=== PATIENT | female | born 1945 | race Caucasian/White ===

== ENCOUNTER 2022-11-12 16:43 | Inpatient (IN) | payer BC, MEDICARE ==
[~2022-11-12] VITALS: Ht 152.4 cm; Wt 77.6 kg
[~2022-11-12 16:43] MED LIST: ADVIL200 MG PO; AMLODIPINE BESY10 MG PO; ASPIRIN81 MG PO; CEFDINIR300 MG PO; DONEPEZIL HCL10 MG PO; METOPROLOL TART50 MG PO; NIFEDIPINE ER30 M1 PO; ROPINIROLE HC0.25 MG PO; SENNA LAX8.6 MG PO; SERTRALINE HCL50 MG PO
[2022-11-12] MEDS ORDERED: SODIUM CHLORIDE 0.9% 1000ML 1,000 ML IV STA (16:47)
[2022-11-12 17:31] LABS: BASOPHILS % 0.2 % (0.0-1.0); EOSINOPHILS % 0.1 % (0.0-6.0); HEMOGLOBIN 13.3 g/dL (12.0-16.0); LYMPHOCYTES # (AUTO) 1.2 (1.0-3.2); LYMPHOCYTES % 6.3 % (18.0-39.1); MEAN CORPUSCULAR HEMOGLOBIN 30.1 pg (28-32); MEAN CORPUSCULAR HGB CONC 29.6 g/dL (31-35); MEAN CORPUSCULAR VOLUME 101.8 fL (81-99); MONOCYTES # (AUTO) 1.8 (0.2-0.8); MONOCYTES % 9.5 % (4.4-11.3); NEUTROPHILS # (AUTO) 15.9 (2.1-6.9); NEUTROPHILS % 82.3 % (38.7-80.0); PLATELET COUNT 196 x10e3/uL (140-360); RED BLOOD COUNT 4.42 x10e6/uL (3.6-5.1); RED CELL DISTRIBUTION WIDTH 15.2 % (11.7-14.4)
[2022-11-12 17:37] LABS: AMPHETAMINES SCREEN,URINE NEGATIVE (NEGATIVE); BENZODIAZEPINES SCREEN,URINE NEGATIVE (NEGATIVE); PHENCYCLIDINE SCREEN,URINE NEGATIVE (NEGATIVE)
[2022-11-12 17:39] LABS: CLARITY,URINE SL CLOUDY (CLEAR); COLOR,URINE AMBER (YELLOW); KETONES,URINE NEGATIVE (NEGATIVE); LEUKOCYTE ESTERASE ,URINE NEGATIVE (NEGATIVE); NITRITE,URINE NEGATIVE (NEGATIVE); PROTEIN,URINE DIPSTICK 2+ (NEGATIVE); URINE UROBILINOGEN >=8 mg/dL (0.2 - 1)
[2022-11-12] MEDS: SODIUM CHLORIDE 0.9% 1000ML 1,000 ML IV SCH ×2 (17:39→18:11)
[2022-11-12] MEDS ORDERED: Vancomycin IV 1 GM in SODIUM CHLORIDE 0.9% 250ML 250 ML IV ONE ×2 (17:45→22:00)
[2022-11-12 17:46] LABS: AMORPHOUS SEDIMENT,URINE FEW (FEW); BACTERIA,URINE MODERATE /HPF
[2022-11-12] MEDS ORDERED: ONDANSETRON HCL INJ 2MG/ML 2ML 2 MG/ML VIAL ONE (18:09)
[2022-11-12] MEDS ORDERED: CEFTRIAXONE 1 GM VIAL ONE (18:10)
[2022-11-12] MEDS ORDERED: SODIUM CHLORIDE 0.9% 1000ML 1,000 ML ONE (18:10)
[2022-11-12] MEDS ORDERED: SODIUM CHLORIDE 0.9% 1000ML 1,000 ML IV SCH (18:30)
[2022-11-12 18:31] LABS: INR 1.27; PROTHROMBIN TIME 16.1 seconds (11.9-14.5)
[2022-11-12 18:32] LABS: PARTIAL THROMBOPLASTIN TIME 34.1 seconds (23.8-35.5)
[2022-11-12 18:39] LABS: ALBUMIN 2.5 g/dL (3.5-5.0); ALBUMIN/GLOBULIN RATIO 0.5 (0.8-2.0); ANION GAP 17.6 mmol/L (8-16); CALCIUM 9.4 mg/dL (8.4-10.2); CREATININE, SERUM 0.75 mg/dL (0.57-1.11); MAGNESIUM 2.1 MG/DL (1.3-2.1)
[2022-11-12 18:48] LABS: POTASSIUM 2.6 mmol/L (3.5-5.1)
[2022-11-12] MEDS ORDERED: POTASSIUM CHLORIDE 20 MEQ TAB CR PO STA (18:48)
[2022-11-12 18:55] LABS: CREATINE KINASE MB 3.6 ng/mL (0-5.0)
[2022-11-12] MEDS: POTASSIUM CHLORIDE 20MEQ/100ML 100 ML IV SCH ×2 (19:00→20:48)
[2022-11-12] MEDS: ALBUTEROL SULF 0.083% NEB SOLN 3 ML NEB NEB SCH (19:15)
[2022-11-12 20:00] VITALS: BP 137/46
[2022-11-12] MEDS ORDERED: ONDANSETRON HCL INJ 2MG/ML 2ML 2 MG/ML VIAL IV PRN (21:30)
[2022-11-12] MEDS ORDERED: POLYETHYLENE GLYCOL 3350 17 GM PACK PO PRN (21:30)
[2022-11-12] MEDS ORDERED: ACETAMINOPHEN 325 MG TAB PO PRN (21:30)
[2022-11-13] VITALS (9 sets, daily range): BP systolic 139–179; BP diastolic 59–75
[2022-11-13] MEDS: ALBUTEROL SULF 0.083% NEB SOLN 3 ML NEB NEB SCH ×7 (00:15→23:00)
[2022-11-13 01:33] LABS: CREATINE KINASE MB 3.6 ng/mL (0-5.0)
[2022-11-13 06:32] LABS: CREATINE KINASE MB 2.8 ng/mL (0-5.0)
[2022-11-13 06:39] LABS: CHOL/HDL RATIO 7.3 (3.0-3.6); PHOSPHORUS 2.5 MG/DL (2.3-4.7)
[2022-11-13 06:41] LABS: ALBUMIN 2.1 g/dL (3.5-5.0); ALBUMIN/GLOBULIN RATIO 0.5 (0.8-2.0); ANION GAP 14.9 mmol/L (8-16); CALCIUM 8.4 mg/dL (8.4-10.2); CREATININE, SERUM 0.72 mg/dL (0.57-1.11)
[2022-11-13 06:45] LABS: THYROID STIMULATING HORMONE 0.343 uIU/mL (0.350-4.940)
[2022-11-13 07:17] LABS: POTASSIUM 2.9 mmol/L (3.5-5.1)
[2022-11-13 08:33] LABS: BASOPHILS # (AUTO) 0.1 (0.0-0.1); BASOPHILS % 0.3 % (0.0-1.0); EOSINOPHILS % 0.1 % (0.0-6.0); HEMATOCRIT 34.8 % (34.2-44.1); HEMOGLOBIN 11.3 g/dL (12.0-16.0); LYMPHOCYTES # (AUTO) 1.9 (1.0-3.2); LYMPHOCYTES % 11.4 % (18.0-39.1); MEAN CORPUSCULAR HEMOGLOBIN 30.6 pg (28-32); MEAN CORPUSCULAR HGB CONC 32.5 g/dL (31-35); MEAN CORPUSCULAR VOLUME 94.3 fL (81-99); MONOCYTES # (AUTO) 1.7 (0.2-0.8); MONOCYTES % 10.1 % (4.4-11.3); NEUTROPHILS # (AUTO) 12.9 (2.1-6.9); NEUTROPHILS % 76.2 % (38.7-80.0); PLATELET COUNT 263 x10e3/uL (140-360); RED BLOOD COUNT 3.69 x10e6/uL (3.6-5.1); RED CELL DISTRIBUTION WIDTH 14.8 % (11.7-14.4)
[2022-11-13] MEDS: FAMOTIDINE 20 MG TAB PO SCH ×2 (09:20→16:26)
[2022-11-13] MEDS: DOCUSATE SODIUM 100 MG CAP PO SCH ×2 (09:20→16:26)
[2022-11-13] MEDS ORDERED: POTASSIUM CHLORIDE 10MEQ EA PO ONE (09:30)
[2022-11-13] MEDS ORDERED: POTASSIUM CHLORIDE 20 MEQ in DEXTROSE 5% 1,000 ML IV SCH (10:30)
[2022-11-14] VITALS (9 sets, daily range): BP systolic 126–187; BP diastolic 57–74
[2022-11-14] MEDS: ALBUTEROL SULF 0.083% NEB SOLN 3 ML NEB NEB SCH ×6 (03:00→23:10)
[2022-11-14] MEDS: DOCUSATE SODIUM 100 MG CAP PO SCH ×2 (07:54→16:27)
[2022-11-14] MEDS: FAMOTIDINE 20 MG TAB PO SCH ×2 (08:43→16:28)
[2022-11-14 11:55] LABS: ALBUMIN/GLOBULIN RATIO 0.5 (0.8-2.0); ANION GAP 15.1 mmol/L (8-16); CALCIUM 8.5 mg/dL (8.4-10.2); CREATININE, SERUM 0.66 mg/dL (0.57-1.11); POTASSIUM 3.1 mmol/L (3.5-5.1)
[2022-11-14] MEDS ORDERED: DEXTROSE 5% 1,000 ML IV SCH (16:00)
[2022-11-14] MEDS: POTASSIUM CHLORIDE 20MEQ/100ML 100 ML IV SCH ×2 (16:27→22:01)
[2022-11-14] MEDS ORDERED: POTASSIUM CHLORIDE 20 MEQ in DEXTROSE 5% 1,000 ML IV SCH (17:45)
[2022-11-14] MEDS: DEXTROSE 5% 1,000 ML IV SCH (18:30)
[2022-11-15] VITALS (7 sets, daily range): BP systolic 149–179; BP diastolic 66–98
[2022-11-15] MEDS: ALBUTEROL SULF 0.083% NEB SOLN 3 ML NEB NEB SCH ×6 (03:42→23:10)
[2022-11-15 06:22] LABS: ALBUMIN 1.9 g/dL (3.5-5.0); ALBUMIN/GLOBULIN RATIO 0.4 (0.8-2.0); ANION GAP 14.3 mmol/L (8-16); CALCIUM 8.5 mg/dL (8.4-10.2); CREATININE, SERUM 0.66 mg/dL (0.57-1.11); POTASSIUM 3.3 mmol/L (3.5-5.1)
[2022-11-15] MEDS: DOCUSATE SODIUM 100 MG CAP PO SCH ×2 (09:51→17:05)
[2022-11-15] MEDS: FAMOTIDINE 20 MG TAB PO SCH (09:51)
[2022-11-15] MEDS: DEXTROSE 5% 1,000 ML IV SCH (12:19)
[2022-11-15] MEDS ORDERED: ONDANSETRON HCL 4 MG ORAL DISINTEGRATING TAB PO PRN (14:15)
[2022-11-16 01:49] VITALS: BP 147/86
[2022-11-16] MEDS: ALBUTEROL SULF 0.083% NEB SOLN 3 ML NEB NEB SCH ×6 (03:15→23:20)
[2022-11-16 05:02] VITALS: BP 171/63
[2022-11-16 06:03] LABS: BASOPHILS # (AUTO) 0.1 (0.0-0.1); BASOPHILS % 0.5 % (0.0-1.0); EOSINOPHILS # (AUTO) 0.4 (0.0-0.4); EOSINOPHILS % 2.8 % (0.0-6.0); HEMATOCRIT 34.6 % (34.2-44.1); HEMOGLOBIN 11.1 g/dL (12.0-16.0); LYMPHOCYTES # (AUTO) 1.4 (1.0-3.2); LYMPHOCYTES % 9.8 % (18.0-39.1); MEAN CORPUSCULAR HGB CONC 32.1 g/dL (31-35); MEAN CORPUSCULAR VOLUME 93.5 fL (81-99); MONOCYTES # (AUTO) 1.3 (0.2-0.8); MONOCYTES % 8.9 % (4.4-11.3); NEUTROPHILS # (AUTO) 10.5 (2.1-6.9); PLATELET COUNT 162 x10e3/uL (140-360); RED CELL DISTRIBUTION WIDTH 15.3 % (11.7-14.4)
[2022-11-16 06:29] LABS: ANION GAP 17.4 mmol/L (8-16); CALCIUM 8.3 mg/dL (8.4-10.2); CREATININE, SERUM 0.66 mg/dL (0.57-1.11); POTASSIUM 3.4 mmol/L (3.5-5.1)
[2022-11-16] MEDS: PANTOPRAZOLE SOD 40 MG TABEC PO SCH (09:37)
[2022-11-16] MEDS: DOCUSATE SODIUM 100 MG CAP PO SCH ×2 (09:37→16:30)
[2022-11-16] MEDS: DEXTROSE 5% 1,000 ML IV SCH (09:39)
[2022-11-16 10:10] VITALS: BP 149/72
[2022-11-16 12:35] VITALS: BP 157/66
[2022-11-16 16:00] VITALS: BP 142/73
[2022-11-16 20:00] VITALS: BP 169/72
[2022-11-17] VITALS (7 sets, daily range): BP systolic 143–173; BP diastolic 55–85
[2022-11-17] MEDS: ALBUTEROL SULF 0.083% NEB SOLN 3 ML NEB NEB SCH ×6 (03:15→23:50)
[2022-11-17] MEDS: DEXTROSE 5% 1,000 ML IV SCH (06:30)
[2022-11-17 08:58] LABS: BASOPHILS # (AUTO) 0.1 (0.0-0.1); BASOPHILS % 0.7 % (0.0-1.0); EOSINOPHILS # (AUTO) 0.4 (0.0-0.4); EOSINOPHILS % 3.2 % (0.0-6.0); HEMATOCRIT 37.6 % (34.2-44.1); HEMOGLOBIN 11.7 g/dL (12.0-16.0); LYMPHOCYTES # (AUTO) 1.3 (1.0-3.2); LYMPHOCYTES % 10.9 % (18.0-39.1); MEAN CORPUSCULAR HEMOGLOBIN 30.6 pg (28-32); MEAN CORPUSCULAR HGB CONC 31.1 g/dL (31-35); MEAN CORPUSCULAR VOLUME 98.4 fL (81-99); MONOCYTES % 8.7 % (4.4-11.3); NEUTROPHILS # (AUTO) 8.3 (2.1-6.9); NEUTROPHILS % 71.4 % (38.7-80.0); PLATELET COUNT 268 x10e3/uL (140-360); RED BLOOD COUNT 3.82 x10e6/uL (3.6-5.1); RED CELL DISTRIBUTION WIDTH 15.4 % (11.7-14.4)
[2022-11-17 09:16] LABS: ANION GAP 16.3 mmol/L (8-16); CALCIUM 8.4 mg/dL (8.4-10.2); CREATININE, SERUM 0.65 mg/dL (0.57-1.11); POTASSIUM 3.3 mmol/L (3.5-5.1)
[2022-11-17] MEDS: PANTOPRAZOLE SOD 40 MG TABEC PO SCH (09:34)
[2022-11-17] MEDS: DOCUSATE SODIUM 100 MG CAP PO SCH ×2 (09:34→16:37)
[2022-11-17 10:07] LABS: EOSINOPHILS % (MANUAL) 4 % (0-7); LYMPHOCYTES % (MANUAL) 4 % (19-48); METAMYELOCYTES % (MANUAL) 1 % (0-0); MONOCYTES % (MANUAL) 3 % (3.4-9.0); MYELOCYTES % (MANUAL) 1 % (0-0); NEUTROPHILS % (MANUAL) 87 % (40-74)
[2022-11-17 10:08] LABS: PLATELET ESTIMATE ADEQUATE; PLATELET MORPHOLOGY COMMENT NORMAL; RBC MORPHOLOGY COMMENT NORMAL
[2022-11-17] MEDS ORDERED: POTASSIUM CHLORIDE 20 MEQ TAB CR PO ONE (12:00)
[2022-11-18] VITALS (8 sets, daily range): BP systolic 108–192; BP diastolic 59–90
[2022-11-18] MEDS ORDERED: DAPTOMYCIN 500mg 10ML 400 MG in SODIUM CHLORIDE 0.9% 100 ML IV SCH (03:00)
[2022-11-18] MEDS: ALBUTEROL SULF 0.083% NEB SOLN 3 ML NEB NEB SCH ×6 (03:50→23:35)
[2022-11-18 06:45] LABS: BASOPHILS % 0.3 % (0.0-1.0); EOSINOPHILS # (AUTO) 0.3 (0.0-0.4); EOSINOPHILS % 3.3 % (0.0-6.0); HEMATOCRIT 34.1 % (34.2-44.1); LYMPHOCYTES # (AUTO) 1.3 (1.0-3.2); LYMPHOCYTES % 12.9 % (18.0-39.1); MEAN CORPUSCULAR HEMOGLOBIN 30.6 pg (28-32); MEAN CORPUSCULAR HGB CONC 32.3 g/dL (31-35); MEAN CORPUSCULAR VOLUME 94.7 fL (81-99); MONOCYTES # (AUTO) 0.9 (0.2-0.8); NEUTROPHILS # (AUTO) 7.2 (2.1-6.9); PLATELET COUNT 284 x10e3/uL (140-360); RED CELL DISTRIBUTION WIDTH 15.1 % (11.7-14.4)
[2022-11-18 07:13] LABS: ANION GAP 14.3 mmol/L (8-16); CALCIUM 8.2 mg/dL (8.4-10.2); CREATININE, SERUM 0.71 mg/dL (0.57-1.11); POTASSIUM 3.3 mmol/L (3.5-5.1)
[2022-11-18] MEDS: HYDRALAZINE HCL 20 MG/ML VIAL IV PRN (07:57)
[2022-11-18] MEDS ORDERED: POTASSIUM CHLORIDE 20 MEQ TAB CR PO ONE (08:30)
[2022-11-18] MEDS: PANTOPRAZOLE SOD 40 MG TABEC PO SCH (09:49)
[2022-11-18] MEDS: DOCUSATE SODIUM 100 MG CAP PO SCH ×2 (09:49→16:18)
[2022-11-18] MEDS ORDERED: DAPTOMYCIN 500mg 10ML 400 MG in SODIUM CHLORIDE 0.9% 100 ML IV ONE (11:30)
[2022-11-18] MEDS ORDERED: LORAZEPAM2 MG/1 M1 IVP (19:36)
[2022-11-19] VITALS (7 sets, daily range): BP systolic 105–152; BP diastolic 53–94
[2022-11-19] MEDS: ALBUTEROL SULF 0.083% NEB SOLN 3 ML NEB NEB SCH ×6 (00:25→19:30)
[2022-11-19 06:22] LABS: BASOPHILS % 0.4 % (0.0-1.0); EOSINOPHILS # (AUTO) 0.3 (0.0-0.4); EOSINOPHILS % 2.7 % (0.0-6.0); HEMATOCRIT 35.9 % (34.2-44.1); HEMOGLOBIN 11.5 g/dL (12.0-16.0); LYMPHOCYTES # (AUTO) 1.6 (1.0-3.2); LYMPHOCYTES % 14.9 % (18.0-39.1); MEAN CORPUSCULAR HEMOGLOBIN 30.3 pg (28-32); MEAN CORPUSCULAR VOLUME 94.7 fL (81-99); MONOCYTES # (AUTO) 0.9 (0.2-0.8); MONOCYTES % 8.8 % (4.4-11.3); NEUTROPHILS # (AUTO) 7.4 (2.1-6.9); NEUTROPHILS % 70.7 % (38.7-80.0); PLATELET COUNT 242 x10e3/uL (140-360); RED BLOOD COUNT 3.79 x10e6/uL (3.6-5.1); RED CELL DISTRIBUTION WIDTH 15.4 % (11.7-14.4)
[2022-11-19 06:53] LABS: ANION GAP 14.9 mmol/L (8-16); CALCIUM 8.4 mg/dL (8.4-10.2); CREATININE, SERUM 0.68 mg/dL (0.57-1.11); POTASSIUM 3.9 mmol/L (3.5-5.1)
[2022-11-19] MEDS: PANTOPRAZOLE SOD 40 MG TABEC PO SCH (07:30)
[2022-11-19] MEDS: DOCUSATE SODIUM 100 MG CAP PO SCH ×2 (09:00→17:04)
[2022-11-19] MEDS ORDERED: DAPTOMYCIN 500mg 10ML 400 MG in SODIUM CHLORIDE 0.9% 100 ML IV SCH (11:00)
[2022-11-19] MEDS: DAPTOMYCIN 500mg 10ML 400 MG in SODIUM CHLORIDE 0.9% 100 ML IV SCH (21:00)
[2022-11-20] VITALS (7 sets, daily range): BP systolic 141–162; BP diastolic 55–71
[2022-11-20] MEDS: ALBUTEROL SULF 0.083% NEB SOLN 3 ML NEB NEB SCH ×6 (04:05→23:15)
[2022-11-20] MEDS: PANTOPRAZOLE SOD 40 MG TABEC PO SCH (08:51)
[2022-11-20] MEDS: DOCUSATE SODIUM 100 MG CAP PO SCH ×2 (08:51→15:56)
[2022-11-20] MEDS: DAPTOMYCIN 500mg 10ML 400 MG in SODIUM CHLORIDE 0.9% 100 ML IV SCH (21:14)
[2022-11-21] VITALS (7 sets, daily range): BP systolic 111–164; BP diastolic 57–83
[2022-11-21] MEDS: ALBUTEROL SULF 0.083% NEB SOLN 3 ML NEB NEB SCH ×3 (03:05→12:45)
[2022-11-21 06:37] LABS: BASOPHILS % 0.4 % (0.0-1.0); EOSINOPHILS # (AUTO) 0.3 (0.0-0.4); EOSINOPHILS % 2.8 % (0.0-6.0); HEMATOCRIT 38.3 % (34.2-44.1); LYMPHOCYTES # (AUTO) 1.4 (1.0-3.2); LYMPHOCYTES % 14.9 % (18.0-39.1); MEAN CORPUSCULAR HEMOGLOBIN 30.1 pg (28-32); MEAN CORPUSCULAR HGB CONC 31.3 g/dL (31-35); MONOCYTES # (AUTO) 0.9 (0.2-0.8); MONOCYTES % 9.9 % (4.4-11.3); NEUTROPHILS # (AUTO) 6.6 (2.1-6.9); NEUTROPHILS % 70.5 % (38.7-80.0); PLATELET COUNT 331 x10e3/uL (140-360); RED BLOOD COUNT 3.99 x10e6/uL (3.6-5.1); RED CELL DISTRIBUTION WIDTH 15.1 % (11.7-14.4)
[2022-11-21 07:08] LABS: ALBUMIN 2.2 g/dL (3.5-5.0); ALBUMIN/GLOBULIN RATIO 0.5 (0.8-2.0); CALCIUM 8.5 mg/dL (8.4-10.2); CREATININE, SERUM 0.72 mg/dL (0.57-1.11)
[2022-11-21] MEDS: PANTOPRAZOLE SOD 40 MG TABEC PO SCH (09:11)
[2022-11-21] MEDS: DOCUSATE SODIUM 100 MG CAP PO SCH ×2 (09:11→16:59)
[2022-11-21] MEDS ORDERED: ALBUTEROL SULF 0.083% NEB SOLN 3 ML NEB NEB PRN (15:15)
[2022-11-21] MEDS: DAPTOMYCIN 500mg 10ML 400 MG in SODIUM CHLORIDE 0.9% 100 ML IV SCH (20:28)
[2022-11-22] VITALS (8 sets, daily range): BP systolic 130–199; BP diastolic 56–92
[2022-11-22] MEDS: PANTOPRAZOLE SOD 40 MG TABEC PO SCH (08:59)
[2022-11-22] MEDS: DOCUSATE SODIUM 100 MG CAP PO SCH ×2 (08:59→16:19)
[2022-11-22] MEDS: HYDRALAZINE HCL 20 MG/ML VIAL IV PRN (09:00)
[2022-11-22] MEDS ORDERED: Vancomycin IV 1 GM in SODIUM CHLORIDE 0.9% 250ML 250 ML IV ONE (15:00)
[2022-11-23] VITALS (7 sets, daily range): BP systolic 128–166; BP diastolic 55–81
[2022-11-23 06:07] LABS: BASOPHILS # (AUTO) 0.1 (0.0-0.1); BASOPHILS % 0.5 % (0.0-1.0); EOSINOPHILS # (AUTO) 0.2 (0.0-0.4); HEMATOCRIT 42.3 % (34.2-44.1); HEMOGLOBIN 13.5 g/dL (12.0-16.0); LYMPHOCYTES # (AUTO) 1.2 (1.0-3.2); LYMPHOCYTES % 11.1 % (18.0-39.1); MEAN CORPUSCULAR HEMOGLOBIN 30.4 pg (28-32); MEAN CORPUSCULAR HGB CONC 31.9 g/dL (31-35); MEAN CORPUSCULAR VOLUME 95.3 fL (81-99); MONOCYTES # (AUTO) 0.8 (0.2-0.8); MONOCYTES % 7.6 % (4.4-11.3); NEUTROPHILS # (AUTO) 8.6 (2.1-6.9); NEUTROPHILS % 78.1 % (38.7-80.0); PLATELET COUNT 312 x10e3/uL (140-360); RED BLOOD COUNT 4.44 x10e6/uL (3.6-5.1); RED CELL DISTRIBUTION WIDTH 15.2 % (11.7-14.4)
[2022-11-23 06:36] LABS: ANION GAP 15.7 mmol/L (8-16); CREATININE, SERUM 0.76 mg/dL (0.57-1.11); POTASSIUM 3.7 mmol/L (3.5-5.1)
[2022-11-23] MEDS: PANTOPRAZOLE SOD 40 MG TABEC PO SCH (08:02)
[2022-11-23] MEDS: DOCUSATE SODIUM 100 MG CAP PO SCH ×2 (08:02→15:42)
[2022-11-23] MEDS: Vancomycin IV 500 MG in SODIUM CHLORIDE 0.9% 100 ML IV SCH ×2 (08:02→22:26)
[2022-11-23] MEDS: HYDRALAZINE HCL 20 MG/ML VIAL IV PRN (08:35)
[2022-11-24] VITALS (9 sets, daily range): BP systolic 123–156; BP diastolic 65–75
[2022-11-24] MEDS: PANTOPRAZOLE SOD 40 MG TABEC PO SCH (09:27)
[2022-11-24] MEDS: DOCUSATE SODIUM 100 MG CAP PO SCH ×2 (09:27→17:22)
[2022-11-24] MEDS: Vancomycin IV 500 MG in SODIUM CHLORIDE 0.9% 100 ML IV SCH (09:28)
[2022-11-24] MEDS ORDERED: IBUPROFEN 200 MG TAB PO PRN (10:00)
[2022-11-24] MEDS ORDERED: SENNOSIDES 8.6 MG TAB PO PRN (10:00)
[2022-11-24] MEDS ORDERED: METOPROLOL TARTRATE 50 MG TAB PO SCH (11:30)
[2022-11-24] MEDS ORDERED: PROTONIX40 MG/ML PO (14:19)
[2022-11-24] MEDS ORDERED: ALBUTEROL2.5 MG/3 M NEB (14:19)
[2022-11-24] MEDS ORDERED: ACETAMINOPHEN325 M1 PO (14:19)
[2022-11-24] MEDS ORDERED: ZYVOX600 MG PO (14:19)
[2022-11-24] MEDS ORDERED: ONDANSETRON ODT4 MG PO (14:19)
[2022-11-24] MEDS ORDERED: MIRALAX17 GM PO (14:19)
[2022-11-24] MEDS ORDERED: Docusate Sodium PO (14:19)
[2022-11-24] MEDS ORDERED: ROPINIROLE HCL 0.25 MG TAB PO SCH (21:00)
[2022-11-25] MEDS ORDERED: DONEPEZIL HCL 5 MG TAB PO SCH (09:00)
[2022-11-25] MEDS ORDERED: NIFEDIPINE CR 30 MG TAB PO SCH (09:00)
[2022-11-25] MEDS ORDERED: AMLODIPINE BESYLATE 10 MG TAB PO SCH (09:00)
[2022-11-25] MEDS ORDERED: SERTRALINE HCL 50 MG TAB PO SCH (09:00)
[2022-11-25] MEDS ORDERED: ASPIRIN 81 MG CHEW TAB PO SCH (09:00)
== END 2022-11-24 22:44 | DRG 871 ==
LOC: ER 16:49 → MERGE 18:25 → ERHOLD 18:25 → MED/SURG2 21:18
PROVIDERS: ADMIT Internal Medicine; ATTEND Internal Medicine
DX: A41.9 Sepsis, unspecified organism (principal); G93.41 Metabolic encephalopathy; J69.0 Pneumonitis due to inhalation of food and vomit; E87.0 Hyperosmolality and hypernatremia; N39.0 Urinary tract infection, site not specified; E87.6 Hypokalemia; F03.90 Unspecified dementia, unspecified severity, without behavioral disturbance, psychotic disturbance, mood disturbance, and anxiety; B95.2 Enterococcus as the cause of diseases classified elsewhere; F09 Unspecified mental disorder due to known physiological condition; I10 Essential (primary) hypertension; Z20.822 Contact with and (suspected) exposure to COVID-19; Z86.14 Personal history of Methicillin resistant Staphylococcus aureus infection; Z88.0 Allergy status to penicillin; Z88.2 Allergy status to sulfonamides
CPT/HCPCS: 36415; 51700; 70450; 71045; 74230; 80048; 80053; 80061; 80202; 80307; 81001; 82550; 82553; 82948; 83036; 83735; 83880; 84100; 84443; 84484; 85025; 85610; 85730; 87040; 87086; 87186; 93005; 94640; 94799; 99252; 99284; J0360; J0456; J0696; J2405; J3370; J3480; J7030; J7050; J7070